=== PATIENT | male | born 1930 | race Caucasian/White ===

== ENCOUNTER 2017-01-05 12:33 | Emergency (ER) | payer MEDICARE ==
--- NOTE | ~2017-01-05 | CR142 ---
[facility] A Service of [facility] & [facility] RADIOLOGY TEXT RESULTS PATIENT: AIMEE L[address] LOCATION: [facility] : 32 UNIT #: [id number] AGE: [address]: Moreno Hummel MD SEX: M ORDER DR: [id number] [facility] [address] [place], [place] [address] [id number] E MR#: [id number] Acc #: [id number] NAME: AIMEE L[address] : 1930 SEX: M STUDY DATE/TIME: 01/05/2017 14:20 UNIT: [facility] ROOM: STUDY DESCRIPTION: CR Hand Min 3 Views Rt Attending Physician: Moreno Hummel M.D. Ordering Physician: Moreno Hummel M.D. Primary Care Physician: Abraham Linton M.D. MEDICAL IMAGING REPORT This report is preliminary unless electronic signature is present Exam Right hand 3 views. HISTORY Hand swelling. Smashed hand 4 days ago. TECHNIQUE 3 views are submitted. FINDINGS There is generalized osteopenia. There are advanced arthritic changes in the right wrist with marked deformity of the carpal navicula and carpal lunate. 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 There is advanced arthritis of the first carpometacarpal joint. These findings all appear old. No fractures are identified. CONCLUSION Advanced arthritis of the wrist. No fractures or acute findings. Dictated by... Jacek Manley M.D. THIS IS AN ELECTRONICALLY VERIFIED REPORT Jacek Manley M.D. at 01/07/2017 7:14 AM Dallin TD: 01/05/2017 15:55 JOB #: [id number] MEDICAL IMAGING REPORT Page 1 of 1 COPY
[2017-01-05 14:14] LABS: BASOPHIL% 0.2 % (0-2.5); EOSINOPHIL% 0.3 % (0.0-7.0); HEMATOCRIT 39.1 % (38.0-50.0); LYMPHOCYTE# 0.7 X10e3 (1.0-3.5); LYMPHOCYTE% 6.3 % (17.0-45.0); MEAN CORPUSCULAR HEMOGLOBIN 31.6 PG (28-34); MEAN CORPUSCULAR HGB CONC 33.3 g/dL (30-36); MONOCYTE# 1.3 X10e3 (0-1.0); MONOCYTE% 12.2 % (3.0-12.0); NEUTROPHIL# 8.5 X10e3 (1.5-7.1); PLATELET COUNT 167 X10e3 (140-420); RED BLOOD COUNT 4.12 X10e (3.90-5.60); RED CELL DISTRIBUTION WIDTH 12.5 % (11.0-15.5); WHITE BLOOD COUNT 10.5 X10e3 (4.0-10.5)
[2017-01-05 14:17] LABS: DIFF IND NO
[2017-01-05 15:28] LABS: CALCIUM SERUM 8.9 mg/dL (8.4-10.2); CREATININE SERUM 0.8 mg/dL (0.6-1.4); GLOM FILT RATE Estimated 82.1 mL/min (>60); POTASSIUM 4.4 mmol/L (3.5-5.1)
== END 2017-01-05 15:52 | disposition home or self-care (01) ==
LOC: CED 12:33
PROVIDERS: Emergency Medicine
DX: M79.89 Other specified soft tissue disorders (principal); I10 Essential (primary) hypertension; Z88.0 Allergy status to penicillin; Z86.79 Personal history of other diseases of the circulatory system
CPT/HCPCS: 36415; 73130; 80048; 85025; 96365; 99283

== ENCOUNTER 2017-02-21 05:00 | Emergency (ER) | payer MEDICARE ==
[~2017-02-21] VITALS: Ht 167.6 cm; Wt 81.2 kg
--- NOTE | ~2017-02-21 | CT2 ---
[facility] A Service of [facility] RADIOLOGY TEXT RESULTS PATIENT: AIMEE L[address] LOCATION: [facility] : 32 UNIT #: [id number] AGE: [address]: Moreno Hummel MD SEX: M ORDER DR: [id number] [facility] [address] [place], [place] [address] [id number] E MR#: [id number] Acc #: [id number] NAME: AIMEE L[address] : 1930 SEX: M STUDY DATE/TIME: 02/21/2017 8:01 UNIT: BI ROOM: STUDY DESCRIPTION: CT Abd and Pelv W Cont Attending Physician: Moreno Hummel M.D. Ordering Physician: Moreno Hummel M.D. Primary Care Physician: Abraham Linton M.D. MEDICAL IMAGING REPORT This report is preliminary unless electronic signature is present EXAM CT of abdomen and pelvis with contrast. INDICATIONS Nausea and right lower quadrant abdominal pain since 02/20/2017. PROCEDURE Contrast-enhanced CT of the abdomen and pelvis. This CT exam was performed with one or more of the following radiation dose reduction techniques: automatic exposure control, adjustment of mA and/or kV according to patient size, and iterative reconstruction. COMPARISON None. FINDINGS ABDOMEN WITH CONTRAST: Pleural-based calcifications in the included lung bases suggesting previous asbestos exposure. No liver or splenic mass. Kidneys, adrenal glands, pancreas are unremarkable. Cholelithiasis with no CT evidence for acute inflammation. Bowel loops are nondilated appendix is normal. Sigmoid diverticula without definitive evidence for active complication. There is thickening throughout the sigmoid colon, with no significant surrounding inflammatory change. PELVIS WITH CONTRAST: Scattered small bladder diverticula. 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 No aggressive appearing bone lesion. IMPRESSION 1. No acute findings. 2. Sigmoid diverticula with thickening of the sigmoid colon, but no evidence for active inflammation. This may reflect changes of [facility] A Service of [facility] RADIOLOGY TEXT RESULTS PATIENT: AIMEE L[address] LOCATION: [facility] : 32 UNIT #: [id number] AGE: [address]: Moreno Hummel MD SEX: M ORDER DR: chronic diverticulitis. 3. Appendix is normal. 4. Uncomplicated cholelithiasis. 5. Other findings as above. Dictated by... Hayder Wade M.D. THIS IS AN ELECTRONICALLY VERIFIED REPORT Hayder Wade M.D. at 02/23/2017 5:01 PM JERED/jing TD: 02/21/2017 20:03 JOB #: [id number] MEDICAL IMAGING REPORT Page 1 of 1 COPY
--- NOTE | ~2017-02-21 | US67 ---
[facility] A Service of [facility] & [facility] RADIOLOGY TEXT RESULTS PATIENT: AIMEE L[address] LOCATION: [facility] : 32 UNIT #: [id number] AGE: [address]: Moreno Hummel MD SEX: M ORDER DR: [id number] [facility] [address] [place], [place] [address] [id number] E MR#: [id number] Acc #: [id number] NAME: AIMEE [address] : 1930 SEX: M STUDY DATE/TIME: 02/21/2017 8:59 UNIT: [facility] ROOM: STUDY DESCRIPTION: Gallbladder Attending Physician: Moreno Hummel M.D. Ordering Physician: Moreno Hummel M.D. Primary Care Physician: Abraham Linton M.D. MEDICAL IMAGING REPORT This report is preliminary unless electronic signature is present EXAM Ultrasound of the gallbladder. INDICATIONS Right upper quadrant pain for 2 days. TECHNIQUE Nguyen-scale imaging of the gallbladder and right upper quadrant structures was performed and compared with the CT scan from today. FINDINGS There are gallstones within the gallbladder but the gallbladder is otherwise within normal limits. No wall thickening or pericholecystic fluid. The right kidney measures 10.8 cm in length and is within normal limits. The liver is within normal limits. The common duct is normal at 4 mm. IMPRESSION Cholelithiasis. Otherwise unremarkable. Dictated by... Donnie Thompson M.D. THIS IS AN ELECTRONICALLY VERIFIED REPORT Donnie Thompson M.D. at 02/22/2017 7:26 AM HARPREET/jing TD: 02/21/2017 20:16 JOB #: [id number] MEDICAL IMAGING REPORT Page 1 of 1 COPY
[2017-02-21 06:59] LABS: BASOPHIL% 0.2 % (0-2.5); EOSINOPHIL# 0.1 X10e3 (0-0.7); EOSINOPHIL% 0.4 % (0.0-7.0); HEMATOCRIT 42.8 % (38.0-50.0); HEMOGLOBIN 14.4 gm/dL (13.0-16.0); LYMPHOCYTE# 1.1 X10e3 (1.0-3.5); LYMPHOCYTE% 9.4 % (17.0-45.0); MEAN CELL VOLUME 92.6 FL (83-96); MEAN CORPUSCULAR HEMOGLOBIN 31.3 PG (28-34); MEAN CORPUSCULAR HGB CONC 33.8 g/dL (30-36); MONOCYTE# 0.9 X10e3 (0-1.0); MONOCYTE% 7.7 % (3.0-12.0); NEUTROPHIL# 9.5 X10e3 (1.5-7.1); NEUTROPHIL% 82.3 % (40-75); PLATELET COUNT 142 X10e3 (140-420); RED BLOOD COUNT 4.62 X10e (3.90-5.60); RED CELL DISTRIBUTION WIDTH 14.1 % (11.0-15.5); WHITE BLOOD COUNT 11.5 X10e3 (4.0-10.5)
[2017-02-21 07:04] LABS: DIFF IND NO
[2017-02-21 07:40] LABS: ALBUMIN SERUM 4.1 g/dL (3.5-5.0); BILIRUBIN, DIRECT 0.2 mg/dL (0.0-0.2); BILIRUBIN,INDIRECT 0.9 mg/dL (0.0-0.9); BILIRUBIN,TOTAL 1.1 mg/dL (0.2-2.0); BUN/CREATININE RATIO 31.42; CALCIUM SERUM 9.3 mg/dL (8.4-10.2); CREATININE SERUM 0.7 mg/dL (0.6-1.4); GLOM FILT RATE Estimated 86.7 mL/min (>60); POTASSIUM 3.9 mmol/L (3.5-5.1); PROTEIN TOTAL SERUM 7.5 g/dL (6.0-8.3)
[2017-02-21 07:41] LABS: URINE SOURCE CLEAN CATCH
[2017-02-21 07:49] LABS: URINE APPEARANCE CLEAR; URINE BILIRUBIN NEG (NEG); URINE BLOOD NEG (NEG); URINE COLOR YELLOW; URINE GLUCOSE >1000 MG/DL (NEG); URINE KETONE NEG (NEG); URINE LEUKOCYTE ESTERASE NEG (NEG); URINE NITRATE NEG (NEG); URINE PROTEIN NEG (NEG); URINE SPECIFIC GRAVITY 1.026 (1.003-1.035); URINE UROBILINOGEN 0.2 MG/DL (NEG)
[2017-02-21 07:54] LABS: CULTURE INDICATED? NO
== END 2017-02-21 09:40 | disposition home or self-care (01) ==
LOC: CED 05:00
PROVIDERS: Emergency Medicine
DX: K80.80 Other cholelithiasis without obstruction (principal); R73.9 Hyperglycemia, unspecified; I10 Essential (primary) hypertension; I25.10 Atherosclerotic heart disease of native coronary artery without angina pectoris; Z88.0 Allergy status to penicillin
CPT/HCPCS: 36415; 74177; 76705; 80048; 80076; 81003; 82150; 83690; 85025; 96361; 96374; 99284; J1885; Q9967

== ENCOUNTER 2017-03-21 23:32 | Emergency (ER) | payer MEDICARE ==
[~2017-03-21] VITALS: Ht 170.2 cm; Wt 71.7 kg
--- NOTE | ~2017-03-21 | CR142 ---
[facility] A Service of [facility] & [facility] RADIOLOGY TEXT RESULTS PATIENT: AIMEE L[address] LOCATION: [facility] : 32 UNIT #: [id number] AGE: [address]: MELCHOR MANLEY APRN SEX: M ORDER DR: [id number] [facility] [address] [place], [place] [address] [id number] E MR#: [id number] Acc #: [id number] NAME: AIMEE [address] : 1930 SEX: M STUDY DATE/TIME: 03/22/2017 0:32 UNIT: BI ROOM: STUDY DESCRIPTION: CR Hand Min 3 Views Rt Attending Physician: Melchor Manley Aprn Ordering Physician: Melchor Manley Aprn Primary Care Physician: Abraham Linton M.D. MEDICAL IMAGING REPORT This report is preliminary unless electronic signature is present EXAM Right hand 3 views. HISTORY Chronic hand and wrist pain, increased for several days. No recent injury. FINDINGS 3 views of the right hand demonstrate advanced erosive and degenerative changes in the wrist. Chronic deformity of the lunate and widening of the scapholunate interspace and chronic remodelling of the scaphoid. Wgfl-lo-glttzytw multifocal degenerative changes in the hand. Chronic 3 mm opaque foreign body in the soft tissues at the base of the second digit along its radial margin, unchanged compared to 01/05/2017. Generalized demineralization. Chondrocalcinosis in the wrist. No recent fracture. IMPRESSION Degenerative changes in the wrist and hand are most advanced at the radiocarpal junction. No acute findings. Dictated by... Tony Gayle M.D. THIS IS AN ELECTRONICALLY VERIFIED REPORT Tony Gayle M.D. at 03/22/2017 10:32 PM DFL/gz TD: 03/22/2017 12:03 JOB #: [id number] MEDICAL IMAGING REPORT Page 1 of 1 COPY
--- NOTE | ~2017-03-21 | CR282 ---
[facility] A Service of [facility] & [facility] RADIOLOGY TEXT RESULTS PATIENT: [address]EE [address] LOCATION: [facility] : 32 UNIT #: [id number] AGE: [address]: MELCHOR MANLEY APRN SEX: M ORDER DR: [id number] [facility] [address] [place], [place] [address] [id number] E MR#: [id number] Acc #: [id number] NAME: AIMEE [address] : 1930 SEX: M STUDY DATE/TIME: 03/22/2017 0:34 UNIT: BI ROOM: STUDY DESCRIPTION: CR Wrist Min 3 View Rt Attending Physician: Melchor Manley Aprn Ordering Physician: Melchor Manley Aprn Primary Care Physician: Abraham Linton M.D. MEDICAL IMAGING REPORT This report is preliminary unless electronic signature is present EXAM Right wrist 3 views. HISTORY Chronic wrist pain, worse for 3 days. FINDINGS 3 views of the right wrist demonstrate advanced degenerative arthritis in the wrist, primarily in the radiocarpal joint. Chronic remodelling of the scaphoid and lunate. Widening of the scapholunate interspace. Chondrocalcinosis in the wrist. Advanced degenerative changes at the first CMC joint. Generalized demineralization. No fracture. IMPRESSION Advanced degenerative changes in the wrist. No fracture. Dictated by... Tony Gayle M.D. THIS IS AN ELECTRONICALLY VERIFIED REPORT Tony Gayle M.D. at 03/22/2017 10:29 PM DFL/gz TD: 03/22/2017 12:05 JOB #: [id number] MEDICAL IMAGING REPORT Page 1 of 1 COPY
== END 2017-03-22 01:57 | disposition home or self-care (01) ==
LOC: CED 23:32
DX: M13.841 Other specified arthritis, right hand (principal); M13.831 Other specified arthritis, right wrist; I10 Essential (primary) hypertension; Z98.890 Other specified postprocedural states
CPT/HCPCS: 29260; 73110; 73130; 99284